=== PATIENT | male | born 1990 | race Caucasian/White ===

== ENCOUNTER 2016-07-04 04:18 | Emergency (ER) | payer MEDICAID ==
[2016-07-04 04:27] VITALS: RESP 16; TEMP 98.1
--- NOTE | 2016-07-04 04:53 | EDPHY ---
H & P Stated Complaint: c/o sorethroat x 2 weeks, cough/nasal drainage x 1 week HPI/ROS: HPI CHIEF COMPLAINT: Sore throat x2 weeks, cough, congestion, runny nose, productive cough with yellow sputum HISTORY OF PRESENT ILLNESS: This patient very pleasant 26-year-old male significant past medical history for cyclic vomiting syndrome, presents emergency room with 2 weeks of runny nose, sore throat, nasal congestion and an intermittent productive cough with yellow sputum. He denies fever, chest pain or shortness of breath. Tells me at times he has small amount of yellow sputum that he coughs up. He came to the emergency room tonight due to worsening cough and sore throat. No fever. Past Medical History: Cyclic vomiting syndrome Past Surgical History: denies recent pertinent surgical history Social History: Smokes tobacco, denies smoking marijuana recently, denies alcohol Family History: noncontributory ROS REVIEW OF SYSTEMS: A comprehensive 10 point review of systems is otherwise negative aside from elements mentioned in the history of present illness. Exam Constitutional triage nursing summary reviewed, vital signs reviewed, awake/ alert. Eyes normal conjunctivae and sclera, EOMI, PERRLA. HENT posterior pharynx erythematous there is no significant exudate, uvula is midline, no asymmetrical swelling no signs of Tom's, TMs are clear bilaterally normal inspection, atraumatic, moist mucus membranes, no epistaxis, neck supple/ no meningismus, no raccoon eyes. Respiratory clear to auscultation bilaterally, normal breath sounds, no respiratory distress, no wheezing. Cardiovascular rate normal, regular rhythm, no murmur, no edema, distal pulses normal. Gastrointestinal soft, non-tender, no rebound, no guarding, normal bowel sounds, no distension, no pulsatile mass. Genitourinary no CVA tenderness. Musculoskeletal no midline vertebral tenderness, full range of motion, no calf swelling, no tenderness of extremities, no meningismus, good pulses, neurovascularly intact. Skin pink, warm, & dry, no rash, skin atraumatic. Neurologic awake, alert and oriented x 3, AAOx3, moves all 4 extremities equally, motor intact, sensory intact, CN II-XII intact, normal cerebellar, normal vision, normal speech. Psychiatric normal mood/affect. Heme/Lymph/Immune no lymphadenopathy. Differential Diagnosis: Includes but is not limited to in a particular order, upper respiratory tract infection, viral syndrome, strep pharyngitis, viral pneumonia bacterial pneumonia Medical Decision Making: Plan for this patient to have a rapid strep done as well as a two view chest x-ray to rule out pneumonia. It is noted here he is not hypoxic, he does not have a fever. Re-evaluation: ED x-ray chest two view: Negative for acute cardiopulmonary disease. No evidence of pneumonia. Rapid strep was negative. Due to the patient's symptoms of 2 weeks of sinus congestion, sore throat, cough with yellow productive sputum I will place the patient on guaifenesin, ibuprofen, albuterol, prednisone and azithromycin. He understands drink lots of fluid take these medications with food not empty stomach and return emergency room if there is any worsening symptoms questions or concerns including worsening shortness of breath, high fever, vomiting Source: Patient - Medical/Surgical History Hx Asthma: No Hx Chronic Respiratory Disease: No Hx Diabetes: No Hx Cardiac Disease: No Hx Renal Disease: No Hx Cirrhosis: No Hx Alcoholism: No Hx HIV/AIDS: No Hx Splenectomy or Spleen Trauma: No Other PMH: cyclic vomiting - Social History Smoking Status: Never smoked Constitutional: Initial Vital Signs Temperature (C) 36.7 C 07/04/16 04:22 Heart Rate 73 07/04/16 04:22 Respiratory Rate 16 07/04/16 04:22 Blood Pressure 132/78 H 07/04/16 04:22 O2 Sat (%) 96 07/04/16 04:22 O2 Delivery Mode Room Air Allergies/Adverse Reactions: No Known Allergies Allergy (Unverified 07/04/16 04:27) Home Medications: Medication Instructions Recorded AZITHROMYCIN [Z-PACK] 250 mg PO DAILY #6 tab 07/04/16 Albuterol [Proventil Inhaler HFA 1 - 2 puffs IH Q4H #1 mdi 07/04/16 (*)] Guaifenesin [Guaifenesin ER] 600 mg PO BID #14 tab.er.12h 07/04/16 Ibuprofen [Motrin (*)] 800 mg PO Q6-8PRN #7 tab 07/04/16 predniSONE 60 mg PO DAILY #15 tab 07/04/16 Medical Decision Making - Data Points Laboratory Results: 07/04/16 07/04/16 Unknown 04:45 Group A Strep Screen NEGATIVE (NEGATIVE) Group A Strep DNA Pending Departure - Departure Disposition: Home, Routine, Self-Care Clinical Impression: Viral syndrome, Bronchitis Acute pharyngitis Qualifiers: Pharyngitis/tonsillitis etiology: unspecified etiology Qualified Code(s): J02.9 - Acute pharyngitis, unspecified Condition: Good Instructions: Pharyngitis (ED), Acute Bronchitis (ED), Viral Syndrome (ED) Additional Instructions: 1. Stay well-hydrated drink lots of fluids 2. return emergency room if there is any worsening symptoms questions or concerns. 3.Return if he have a high fever, vomiting, severe shortness of breath. Referrals: NONE *PRIMARY CARE P,. [Primary Care Provider] - As per Instructions Prescriptions: Albuterol [Proventil Inhaler HFA (*)] 1 - 2 puffs IH Q4H #1 mdi AZITHROMYCIN [Z-PACK] 250 mg PO DAILY #6 tab Guaifenesin [Guaifenesin ER] 600 mg PO BID #14 tab.er.12h Ibuprofen [Motrin (*)] 800 mg PO Q6-8PRN #7 tab predniSONE 60 mg PO DAILY #15 tab
[2016-07-04] MEDS ORDERED: IPRATROPIUM/ALBUTEROL 3 ML DEYVIAL IH ONE (05:06)
[2016-07-04] MEDS ORDERED: guaiFENesin 600 MG TAB.ER PO ONE (05:06)
[2016-07-04] MEDS ORDERED: predniSONE 20 MG TAB PO ONE (05:06)
[2016-07-04] MEDS ORDERED: AZITHROMYCIN 250 MG TAB PO ONE (06:05)
[2016-07-04] MEDS ORDERED: DEXAMETHASONE 4 MG TAB PO ONE (06:05)
[2016-07-04 06:26] VITALS: BP 130/78; PULSE 85; O2SAT 100
== END 2016-07-04 06:24 | disposition home or self-care (01) ==
DX: J20.9 Acute bronchitis, unspecified (principal); B34.9 Viral infection, unspecified; F17.200 Nicotine dependence, unspecified, uncomplicated